=== PATIENT | male | born 1955 | race Caucasian/White ===

== ENCOUNTER 2018-04-02 15:34 | Outpatient (REF) | payer BC, SELFPAY ==
[2018-04-02 22:00] LABS: ALT 74 U/L (12-78); AST 79 U/L (15-37); Albumin 3.9 g/dL (3.4-5.0); Alkaline Phosphatase 236 U/L (46-116); Anion Gap 9.2 mmol/L (3-11); BUN 7 mg/dL (7-18); Bilirubin, Total 1.4 mg/dL (0.2-1.0); CO2 26.8 mmol/L (21.0-32.0); CREATININE 0.67 mg/dL (0.70-1.30); Calcium 8.6 mg/dL (8.5-10.1); Chloride 96 mmol/L (98-107); Cholesterol 160 mg/dL (50-200); Glucose 108 mg/dL (70-100); HDL Cholesterol 35 mg/dL (40-60); LDL CHOLESTEROL 102 mg/dL (<100); Potassium 3.9 mmol/L (3.5-5.1); Sodium 132 mmol/L (136-145); Total Protein 8.7 g/dL (6.4-8.2); Triglyceride 84 mg/dL (30-150)
== END 2018-04-02 15:54 ==
LOC: NCHCN 15:34
PROVIDERS: PCP Internal Medicine; Visit Provider Internal Medicine
DX: I10 Essential (primary) hypertension (principal)
CPT/HCPCS: 80053; 80061; 83721

== ENCOUNTER 2019-03-07 09:51 | Outpatient (REF) | payer BC, SELFPAY ==
[2019-03-07 20:51] LABS: INR 1.2 (0.9-1.1); Prothrombin Time 12.3 sec (9.3-11.0)
[2019-03-07 21:25] LABS: HCT 45.2 % (40.0-50.0); Mean Corp. HGB Concentration 33.2 g/dL (32.0-36.0); Mean Corpuscular Hemoglobin 32.8 pg (27.0-33.0); Mean Corpuscular Volume 98.7 fL (80-95); Mean Platelet Volume 10.6 fL (8.0-11.0); RBC 4.58 m/cumm (4.50-6.00); White Blood Cell Count 6.15 k/cumm (4.4-10.8)
[2019-03-07 21:38] LABS: ALT 35 U/L (16-63); AST 51 U/L (15-37); Albumin 3.7 g/dL (3.4-5.0); Alkaline Phosphatase 196 U/L (46-116); Anion Gap 9.1 mmol/L (3-11); BUN 9 mg/dL (7-18); Bilirubin, Total 1.2 mg/dL (0.2-1.0); CO2 26.9 mmol/L (21.0-32.0); CREATININE 0.85 mg/dL (0.70-1.30); Calcium 8.7 mg/dL (8.5-10.1); Chloride 97 mmol/L (98-107); Glucose 123 mg/dL (70-100); Potassium 4.5 mmol/L (3.5-5.1); Sodium 133 mmol/L (136-145); Total Protein 8.8 g/dL (6.4-8.2); Uric Acid 3.1 mg/dL (3.5-7.2)
[2019-03-07 21:47] LABS: Platelet Count 86 x1000/uL (130-400)
== END 2019-03-07 10:11 ==
LOC: NCHCN 09:51
PROVIDERS: PCP Nurse Practitioner Family; Visit Provider Nurse Practitioner Family
DX: I10 Essential (primary) hypertension (principal); M10.9 Gout, unspecified; R94.5 Abnormal results of liver function studies; G89.4 Chronic pain syndrome
CPT/HCPCS: 80053; 85027; 84550; 85610

== ENCOUNTER 2020-04-27 09:27 | Outpatient (REF) | payer BC, SELFPAY ==
[2020-04-27 21:12] LABS: INR 1.2 (0.9-1.1)
[2020-04-27 21:47] LABS: HCT 44.3 % (40.0-50.0); HGB 15.1 g/dL (13.5-17.5); MCH 33.4 pg (27.0-33.0); MCHC 34.1 % (32.0-36.0); RBC 4.52 10^6/uL (4.36-5.78); RDW 12.9 % (11.8-14.1); RDW-SD 46.1 fL
[2020-04-27 22:00] LABS: WBC 6.42 10^3/uL (4.4-10.8)
[2020-04-27 22:16] LABS: ALT 42 U/L (16-63); AST 65 U/L (15-37); Albumin 3.6 g/dL (3.4-5.0); Alkaline Phosphatase 222 U/L (46-116); Anion Gap 6.9 mmol/L (3-11); BUN 5 mg/dL (7-18); Bilirubin, Total 1.6 mg/dL (0.2-1.0); CO2 27.1 mmol/L (21.0-32.0); Calcium 9.2 mg/dL (8.5-10.1); Chloride 98 mmol/L (98-107); Glucose 127 mg/dL (74-106); Potassium 4.1 mmol/L (3.5-5.1); Sodium 132 mmol/L (136-145); Total Protein 9.1 g/dL (6.4-8.2)
== END 2020-04-27 09:47 ==
LOC: NCHCN 09:27
PROVIDERS: PCP Nurse Practitioner Family; Visit Provider Nurse Practitioner Family
DX: I10 Essential (primary) hypertension (principal); K70.30 Alcoholic cirrhosis of liver without ascites
CPT/HCPCS: 80053; 85027; 85610

== ENCOUNTER 2021-02-02 13:45 | Outpatient (REF) | payer BC, SELFPAY ==
[2021-02-02 14:20] LABS: HCT 37.5 % (40.0-50.0); HGB 13.2 g/dL (13.5-17.5); MCH 35.3 pg (27.0-33.0); MCHC 35.2 % (32.0-36.0); MCV 100.3 fL (80-95); RBC 3.74 10^6/uL (4.36-5.78); RDW-SD 47.9 fL; WBC 7.71 10^3/uL (4.4-10.8)
[2021-02-02 14:34] LABS: INR 1.3 (0.9-1.1); Prothrombin Time 13.4 sec (9.3-11.0)
[2021-02-02 14:43] LABS: ALT 29 U/L (16-63); AST 66 U/L (15-37); Albumin 2.8 g/dL (3.4-5.0); Alkaline Phosphatase 222 U/L (46-116); Anion Gap 6.8 mmol/L (3-11); BUN 5 mg/dL (7-18); Bilirubin, Total 1.3 mg/dL (0.2-1.0); CO2 27.2 mmol/L (21.0-32.0); CREATININE 0.8 mg/dL (0.70-1.30); Calcium 8.4 mg/dL (8.5-10.1); Chloride 99 mmol/L (98-107); Glucose 112 mg/dL (74-106); Potassium 4.1 mmol/L (3.5-5.1); Sodium 133 mmol/L (136-145); TSH 2.46 uIU/mL (0.36-3.74); Total Protein 8.6 g/dL (6.4-8.2); Uric Acid 2.9 mg/dL (3.5-7.2)
== END 2021-02-02 13:46 | disposition home or self-care (01) ==
LOC: NCHCN 13:45
PROVIDERS: PCP Nurse Practitioner Family; Visit Provider Nurse Practitioner Family
DX: I10 Essential (primary) hypertension (principal); M10.9 Gout, unspecified; K70.30 Alcoholic cirrhosis of liver without ascites; G89.4 Chronic pain syndrome; Z72.0 Tobacco use
CPT/HCPCS: 80053; 85027; 84443; 84550; 85610

== ENCOUNTER 2021-02-10 11:21 | Outpatient (REF) | payer BC, SELFPAY ==
[2021-02-10 15:01] LABS: HCT 36.4 % (40.0-50.0); HGB 12.6 g/dL (13.5-17.5); MCH 34.6 pg (27.0-33.0); MCHC 34.6 % (32.0-36.0); RBC 3.64 10^6/uL (4.36-5.78); RDW 13.1 % (11.8-14.1); RDW-SD 48.2 fL; WBC 5.76 10^3/uL (4.4-10.8)
== END 2021-02-10 11:22 | disposition home or self-care (01) ==
LOC: NCHCN 11:21
PROVIDERS: PCP Nurse Practitioner Family; Visit Provider Nurse Practitioner Family
DX: K70.30 Alcoholic cirrhosis of liver without ascites (principal)
CPT/HCPCS: 85027

== ENCOUNTER 2021-07-15 16:05 | Outpatient (REF) | payer BC, SELFPAY ==
[2021-07-15 14:40] LABS: HGB 12.6 g/dL (13.5-17.5); MCHC 34.1 % (32.0-36.0); MCV 102.8 fL (80-95); RDW 14.7 % (11.8-14.1); RDW-SD 56.5 fL; WBC 6.92 10^3/uL (4.4-10.8)
[2021-07-15 14:42] LABS: INR 1.5 (0.9-1.1); Prothrombin Time 14.9 sec (9.3-11.0)
[2021-07-15 14:54] LABS: ALT 27 U/L (16-63); AST 63 U/L (15-37); Albumin 2.5 g/dL (3.4-5.0); Alkaline Phosphatase 223 U/L (46-116); BUN 5 mg/dL (7-18); CREATININE 0.7 mg/dL (0.70-1.30); Calcium 8.3 mg/dL (8.5-10.1); Calculated LDL 75 mg/dL (<100); Chloride 101 mmol/L (98-107); Cholesterol 116 mg/dL (<200); Glucose 112 mg/dL (74-106); HDL Cholesterol 31 mg/dL (40-60); Potassium 3.4 mmol/L (3.5-5.1); Sodium 135 mmol/L (136-145); Total Protein 8.9 g/dL (6.4-8.2); Triglyceride 50 mg/dL (<150)
[2021-07-15 15:10] LABS: Hemoglobin A1C 4.2 % (<5.7)
== END 2021-07-15 16:06 | disposition home or self-care (01) ==
LOC: NCHCN 16:05
PROVIDERS: PCP Nurse Practitioner Family; Visit Provider Nurse Practitioner Family
DX: E78.5 Hyperlipidemia, unspecified (principal); R73.9 Hyperglycemia, unspecified; R94.5 Abnormal results of liver function studies; K70.30 Alcoholic cirrhosis of liver without ascites; I10 Essential (primary) hypertension
CPT/HCPCS: 80053; 80061; 85027; 83036; 85610

== ENCOUNTER 2021-07-19 15:18 | Outpatient (REF) | payer BC, SELFPAY ==
[2021-07-21 10:54] LABS: COVID-19 RT-PCR UVMMC Result Negative (Negative)
== END 2021-07-19 15:19 | disposition home or self-care (01) ==
LOC: NCHCN 15:18
PROVIDERS: PCP Nurse Practitioner Family; Visit Provider Nurse Practitioner Family
DX: Z20.822 Contact with and (suspected) exposure to COVID-19 (principal); R50.9 Fever, unspecified
CPT/HCPCS: U0003

== ENCOUNTER 2021-08-11 15:11 | Outpatient (REF) | payer BC, SELFPAY ==
[2021-08-11 21:58] LABS: Absolute Basophil Count 0.11 10^3/uL (0.0-0.2); Absolute Eosinophil Count 0.26 10^3/uL (0.0-0.7); Absolute Lymphocyte Count 2.25 10^3/uL (1.2-3.4); Absolute Neutrophil Count 5.58 10^3/uL (1.2-6.7); Basophils % 1.2; Eosinophils % 2.8; HCT 39.8 % (40.0-50.0); HGB 13.4 g/dL (13.5-17.5); Immature Grans % 0.3; Lymphocytes % 24.4; MCH 34.5 pg (27.0-33.0); MCHC 33.7 % (32.0-36.0); MCV 102.6 fL (80-95); Monocytes % 10.8; Neutrophils % 60.5; Nucleated RBC 0 %; RBC 3.88 10^6/uL (4.36-5.78); RDW 14.6 % (11.8-14.1); RDW-SD 55.3 fL; WBC 9.23 10^3/uL (4.4-10.8)
[2021-08-11 22:18] LABS: ALT 22 U/L (16-63); AST 65 U/L (15-37); Albumin 2.6 g/dL (3.4-5.0); Alkaline Phosphatase 223 U/L (46-116); BUN 10 mg/dL (7-18); Bilirubin, Total 3.7 mg/dL (0.2-1.0); Calcium 8.4 mg/dL (8.5-10.1); Chloride 101 mmol/L (98-107); Glucose 95 mg/dL (74-106); Potassium 3.4 mmol/L (3.5-5.1); Sodium 137 mmol/L (136-145); Total Protein 9.3 g/dL (6.4-8.2)
[2021-08-11 22:23] LABS: Diff Comment Agrees w/ Instrument; RBC Morphology Normal
[2021-08-12 11:12] LABS: Iron 105 ug/dL (65-175); Total Iron Binding Capacity 149 ug/dL (250-450); Transferrin Sat 70 % (20-55)
[2021-08-12 11:19] LABS: Vitamin B12 1158 pg/mL (193-986)
[2021-08-12 22:26] LABS: Ferritin 310 ng/mL (22-322); Folate 14.7 ng/mL (See Note)
== END 2021-08-11 15:12 | disposition home or self-care (01) ==
LOC: NCHCN 15:11
PROVIDERS: PCP Nurse Practitioner Family; Visit Provider Nurse Practitioner Family
DX: D64.9 Anemia, unspecified (principal); R94.5 Abnormal results of liver function studies; N50.812 Left testicular pain
CPT/HCPCS: 80053; 82607; 82728; 82746; 83540; 83550; 85025; 85610

== ENCOUNTER 2021-08-16 15:53 | Outpatient (REF) | payer BC, SELFPAY ==
[2021-08-16 17:45] LABS: INR 1.4 (0.9-1.1); Prothrombin Time 14.2 sec (9.3-11.0)
[2021-08-16 17:55] LABS: ALT 26 U/L (16-63); AST 57 U/L (15-37); Albumin 2.5 g/dL (3.4-5.0); Alkaline Phosphatase 183 U/L (46-116); Anion Gap 6.6 mmol/L (3-11); BUN 6 mg/dL (7-18); Bilirubin, Total 1.6 mg/dL (0.2-1.0); CO2 27.4 mmol/L (21.0-32.0); CREATININE 0.8 mg/dL (0.70-1.30); Calcium 8.6 mg/dL (8.5-10.1); Chloride 102 mmol/L (98-107); Glucose 100 mg/dL (74-106); Potassium 4.4 mmol/L (3.5-5.1); Sodium 136 mmol/L (136-145)
== END 2021-08-16 15:54 | disposition home or self-care (01) ==
LOC: NCHCN 15:53
PROVIDERS: PCP Nurse Practitioner Family; Visit Provider Nurse Practitioner Family
DX: K70.30 Alcoholic cirrhosis of liver without ascites (principal); R60.0 Localized edema
CPT/HCPCS: 80053; 85610

== ENCOUNTER 2021-08-24 16:23 | Outpatient (REF) | payer BC, SELFPAY ==
[2021-08-24 15:53] LABS: HCT 39.1 % (40.0-50.0); HGB 13.2 g/dL (13.5-17.5); MCH 34.1 pg (27.0-33.0); MCHC 33.8 % (32.0-36.0); RBC 3.87 10^6/uL (4.36-5.78); RDW 13.7 % (11.8-14.1); WBC 7.36 10^3/uL (4.4-10.8)
[2021-08-24 16:27] LABS: INR 1.3 (0.9-1.1); Prothrombin Time 13.3 sec (9.3-11.0)
[2021-08-24 16:50] LABS: ALT 30 U/L (16-63); AST 58 U/L (15-37); Albumin 2.8 g/dL (3.4-5.0); Alkaline Phosphatase 189 U/L (46-116); Anion Gap 10.1 mmol/L (3-11); BUN 10 mg/dL (7-18); Bilirubin, Total 1.2 mg/dL (0.2-1.0); CO2 23.9 mmol/L (21.0-32.0); Chloride 98 mmol/L (98-107); Glucose 156 mg/dL (74-106); Sodium 132 mmol/L (136-145); Total Protein 9.9 g/dL (6.4-8.2)
[2021-08-24 16:51] LABS: Platelet Count 100 10^3/uL (130-400)
== END 2021-08-24 16:24 | disposition home or self-care (01) ==
LOC: NCHCN 16:23
PROVIDERS: PCP Nurse Practitioner Family; Visit Provider Nurse Practitioner Family
DX: D64.9 Anemia, unspecified (principal); R94.5 Abnormal results of liver function studies; K70.30 Alcoholic cirrhosis of liver without ascites
CPT/HCPCS: 80053; 85027; 85610

== ENCOUNTER 2021-10-26 12:21 | Emergency (ER) | payer BC, SELFPAY ==
[2021-10-26] VITALS (40 sets, daily range): BP systolic 85–112; BP diastolic 42–61; PULSE 83–116; RESP 13–31; TEMP 36.7–37.2; O2SAT 92–100
--- OUTSIDE RECORDS SUMMARY | 2021-10-26 12:33 | XMS_ITS | CCD ---
:1955 Author Care Team Providers Name Role Phone Ligia JULIEN Attending Physician Unavailable Ligia JULIEN Rounding (Secondary) Physician Unavailab le Vital Signs Unknown or Not Available. Allergies Allergy Code Allergy Type Reaction Status No Known Allergies {Clinical 0 Drug allergy Active monitoring unavailable} Procedures Unknown or Not Available. History of Immunizations Unknown or Not Available. Problems Unknown or Not Available. Results Unknown or Not Available. Active Medications Unknown or Not Available. Medications Administered During Visit Unknown or Not Available. Encounters Encounter Diagnosis Diagnosis Code Start Date Localized edema R600 08/23/2021 Social History Smoking Status Code Start Date End Date Never smoker [id number] Patient Decision Aids Unknown or Not Available. Discharge Instructions You were admitted to [facility] on 08/23/2021 08:55 with a principal diagnosis of Localized edema You were discharged from [facility] on 08/23/2021 00:00 Should you have any questions prior to d ischarge, please contact a member of your healthcare team. If you have left the spital and have any questions, please contact your primary care physician. Chief Complaint and Reason For Visit Unknown or Not Available. Function Status Unknown or Not Available. Plan of Care Unknown or Not Available. Referral/Transition of Care Unknown or Not Available.
--- NOTE | 2021-10-26 12:45 | RT.EKG_ITS ---
APPROVED REPORT Exam: Resting ECG Reason for Exam: weakness Patient Location: E HR:95 bpm ECG Measurements Heart Rate 95 AXIS MO 167 P 33 QRSd 85 QRS -9 QT 382 T -15 QTc 482 Conclusion Sinus rhythm...normal P axis, V-rate 60- 99 Inferior infarct, age indeterminate...Q>35mS, T neg, II III aVF. Sinus. No STEMI. I have reviewed and interpreted ECG and agree with software generated interpretation.
[2021-10-26] MEDS: Ondansetron 4 MG/2 ML VIAL IVP (13:06)
[2021-10-26] MEDS: Pantoprazole 40 MG VIAL IVP (13:06)
[2021-10-26 13:10] LABS: Abs Immature Grans 0.16 10^3/uL (0.0-0.06); Absolute Basophil Count 0.13 10^3/uL (0.0-0.2); Absolute Lymphocyte Count 2.06 10^3/uL (1.2-3.4); Basophils % 0.9; Eosinophils % 0.3; Immature Grans % 1.1; Lymphocytes % 14.3; MCH 35.4 pg (27.0-33.0); MCHC 33.7 % (32.0-36.0); MCV 105 fL (80-95); MPV 10.5 fL (8.0-11.0); Monocytes % 6.9; Neutrophils % 76.5; Platelet Count 177 10^3/uL (130-400); RBC 1.75 10^6/uL (4.36-5.78); RDW 14.7 % (11.8-14.1); WBC 14.39 10^3/uL (4.4-10.8)
[2021-10-26 13:13] LABS: Absolute Eosinophil Count 0.04 10^3/uL (0.0-0.7)
[2021-10-26] MEDS: Normal Saline 500 ML IV (13:15)
[2021-10-26 13:16] LABS: Absolute Neutrophil Count 11.01 10^3/uL (1.2-6.7)
[2021-10-26 13:17] LABS: Absolute Monocyte Count 0.99 10^3/uL (0.1-0.8)
[2021-10-26 13:19] LABS: INR 1.5 (0.9-1.1); Prothrombin Time 14.8 sec (9.3-11.0)
[2021-10-26 13:28] LABS: HGB 6.2 g/dL (13.5-17.5)
[2021-10-26 13:29] LABS: Diff Comment Diff Reviewed; Hypochromasia 3+; Macrocytosis 2+; Polychromasia Present
[2021-10-26 13:31] LABS: ALT 17 U/L (16-63); AST 43 U/L (15-37); Alkaline Phosphatase 121 U/L (46-116); Anion Gap 9.7 mmol/L (3-11); BUN 20 mg/dL (7-18); CO2 24.3 mmol/L (21.0-32.0); CREATININE 1.3 mg/dL (0.70-1.30); Chloride 106 mmol/L (98-107); Estimated GFR 55.58 (mL/min/1.73m2); Glucose 120 mg/dL (74-106); Lipase 155 U/L (73-393); Potassium 3.8 mmol/L (3.5-5.1); Sodium 140 mmol/L (136-145); Total Protein 6.3 g/dL (6.4-8.2); Troponin I < 50 ng/L (<or=60)
[2021-10-26 13:32] LABS: ETHANOL BLOOD < 3.0 mg/dL (<10)
--- NOTE | 2021-10-26 14:00 | DI.RAD_ITS ---
Exam(s) XR PORTABLE CHEST AP EXAM: XR PORTABLE CHEST AP CLINICAL HISTORY: GI bleed. TECHNIQUE: 2D digital imaging was performed. COMPARISON: No exams were available for comparison FINDINGS: Single AP portable view. Heart size is upper normal. The mediastinum is not widened. Lungs are clear. No infiltrates nor obvious pleural effusions. IMPRESSION: No acute pulmonary findings on this single AP portable view of the chest. DATA REPOSITORY: RADIATION DOSE DELIVERED: All CT scans at this facility use at least one of these dose optimization techniques: automated exposure control; mA and/or kV adjustment per patient size (includes targeted e xams where dose is matched to clinical indication); or iterative reconstruction.
[2021-10-26] MEDS: cefTRIAXone 1 GM/50 ML BAG IVPB (14:22)
[2021-10-26] MEDS: OCTREOTIDE 250 MCG in Normal Saline 245 ML 50 MCG IV (14:26)
--- NOTE | 2021-10-26 15:12 | ED.GENADUL_ITS ---
Discharge Plan Disposition Patient Disposition: [facility] Condition: Critical Discharge Details Clinical Impression: Acute GI bleeding, Cirrhosis Primary Care Provider: Mandy Briggs ED Provider: Margarette Bell Home Meds and New Rx's Prescriptions: Continued oxycodone-acetaminophen 7.5-325 mg tablet 1 tab TID 0RF amlodipine 10 mg tablet 10 mg PO DAILY 0RF Label Comments: TAKE 1 TABLET BY MOUTH EVERY DAY allopurinol 300 mg tablet 300 mg PO DAILY 0RF Label Comments: TAKE 1 TABLET BY MOUTH DAILY Discharge Data Discharge Date/Time-TO BE ENTERED AT DEPARTURE: 10/26/21 16:00 Medical Decision Making Guaiac positive stool, melena, no active vomiting in the emergency department Initially hypotensive, blood pressure of 85/45, pulse of 95 on nadolol Received 1 unit of blood and 1 additional unit is infusing at this time Consultation with her surgical physician recommended octreotide infusion in addition to transthoracic stomach acid, received 1 g IV Initially 500 cc bolus of NS with initiated, this was stopped when 1 unit of uncrossed blood was obtained Patient is receiving a second unit of type and cross blood His blood pressure at time of reassessment and 106/51, 1515 Patient was accepted by [facility], Dr. Harris is the accepting physician, I spoke with Dr. Ortiz and cough Updated patient and recommended 1 g of ceftriaxone which was administered, graciela [place] exhibits no signs or symptoms of infectious etiology of symptoms, portable x-ray does not show acute abnormality per radiology interpretation my review Hemoglobin of 6.2, hematocrit of 18, calcium of 8, patient feeling symptomatically improved Resting comfortably in room at time of reassessment, no signs or volume overload Patient has been accepted to [facility], is intact, he is full CODE STATUS, he is agreeable to transport at this time and stable for transport at time of reassessment Medical Records Medical records reviewed: Yes I reviewed the patient's medical records. Lab Data Lab results reviewed: Yes I reviewed the patient's lab results. HPI General Date/Time Provider Initiated Documentation: 10/26/21 12:51 . HPI Narrative: 66-year-old male presents with history of ascites and cirrhosis with bleeding since Monday intermittently. He had several episodes of bloody stools on Monday followed by no active GI bleeding on Monday and then Monday 1 episode of bloody vomiting followed by several episodes of bloody stools. He denies any chest pain, abdominal pain, shortness of breath.. He feels lightheaded. He denies any falls or injuries. He has not had a drink in approximately 3 months. He has not anticoagulated. He did not take any of his medications this morning. He denies prior history of similar symptoms or known varices in the past. He describes the blood in his vomitus with bright red and dark blood in his stool. He denies any current abdominal pain. Related Data Home Medications Medication Instructions Recorded Confirmed allopurinol 300 mg tablet 300 mg PO DAILY 10/26/21 10/26/21 amlodipine 10 mg tablet 10 mg PO DAILY 10/26/21 10/26/21 oxycodone-acetaminophen 7.5 mg-325 1 tab TID 10/26/21 10/26/21 mg tablet Allergies Allergy/AdvReac Type Severity Reaction Status Date / Time No Known Allergies Allergy Unverified 10/26/21 13:58 General Stated Complaint: GI Bleed ABI: 2 Review of Systems All systems reviewed & are unremarkable except as noted in HPI and below PFSH All Active Problems (Updated 10/26/21 @ 15:47 by GRACIELA Daley) Acute GI bleeding (Acute) Cirrhosis (Acute) Medical History (Updated 10/26/21 @ 15:47 by GRACIELA Daley) Cirrhosis Gout Hyperlipemia Hypertension Pain syndrome, chronic Social History Smoking/Tobacco Use Status: Never Smoking risk assessment performed?: Yes Alcohol Intake: former Drug use: Never Do you feel safe at home: Yes Do you feel safe in your relationship?: Yes Exam Const General: cooperative and ill appearing [facility] Other: Dried blood noted around mouth Eyes Pupils: PERRL Other: No icterus Resp Effort & Inspection: normal respiratory effort Auscultation: clear to auscultation bilaterally Cardio Rate: regular rate Rhythm: regular rhythm GI Inspection: normal to inspection Other: non-tender abdominal exam Skin Other: pallor Neuro General: patient alert and patient oriented x3 Extrem General: normal to inspection Left upper extremity: normal to inspection Course Vital Signs Vital signs: Vital Signs Temperature 36.7 C 10/26/21 12:52 Pulse 102 H 10/26/21 12:52 Respiratory Rate 18 10/26/21 12:52 Blood Pressure 93/45 L 10/26/21 12:52 Pulse Oximetry 97 10/26/21 12:52 Temperature 36.9 C 10/26/21 13:20 Temperature Source Tympanic 10/26/21 12:52 Pulse 93 H 10/26/21 13:20 Respiratory Rate 20 10/26/21 13:20 Respiratory Effort Non-Labored 10/26/21 13:30 Blood Pressure 103/48 L 10/26/21 13:20 Pulse Oximetry 98 10/26/21 13:20 Oxygen Delivery Method Room Air 10/26/21 13:20 Oxygen Flow Rate 0 10/26/21 13:20 Lab/Test Results Lab/Test Results: Laboratory Tests Range/Units 10/26/21 10/26/21 10/26/21 12:56 12:56 12:56 WBC (4.4-10.8) 10^3/uL 14.39 H RBC (4.36-5.78) 10^6/uL 1.75 L Hgb (13.5-17.5) g/dL 6.2 L* Hct (40.0-50.0) % 18.4 L* MCV (80-95) fL 105 H MCH (27.0-33.0) pg 35.4 H MCHC (32.0-36.0) % 33.7 RDW (11.8-14.1) % 14.7 H Plt Count (130-400) 10^3/uL 177 MPV (8.0-11.0) fL 10.5 Immature Gran % 1.1 Neutrophils % 76.5 Lymphocytes % 14.3 Monocytes % 6.9 Eosinophils % 0.3 Basophils % 0.9 Nucleated RBC % (0.0-0.3) % 0.0 Absolute Neutrophils (1.2-6.7) 10^3/uL 11.01 H Absolute Lymphocytes (1.2-3.4) 10^3/uL 2.06 Absolute Monocytes (0.1-0.8) 10^3/uL 0.99 H Absolute Eosinophils (0.0-0.7) 10^3/uL 0.04 Absolute Basophils (0.0-0.2) 10^3/uL 0.13 RBC Morphology See Below Polychromasia Present Hypochromasia 3+ Macrocytosis 2+ PT (9.3-11.0) sec 14.8 H INR (0.9-1.1) 1.5 H Sodium (136-145) mmol/L 140 Potassium (3.5-5.1) mmol/L 3.8 Chloride (98-107) mmol/L 106 Carbon Dioxide (21.0-32.0) mmol/L 24.3 Anion Gap (3-11) mmol/L 9.7 BUN (7-18) mg/dL 20 H Creatinine (0.70-1.30) mg/dL 1.3 Estimated GFR/1.73 m2 (mL/min/1.73m2) 55.58 Glucose (74-106) mg/dL 120 H Calcium (8.5-10.1) mg/dL 8.0 L Total Bilirubin (0.2-1.0) mg/dL 1.0 AST (15-37) U/L 43 H ALT (16-63) U/L 17 Alkaline Phosphatase (46-116) U/L 121 H Troponin I (<or=60) ng/L < 50 Total Protein (6.4-8.2) g/dL 6.3 L Albumin (3.4-5.0) g/dL 2.0 L Lipase (73-393) U/L 155 Ethyl Alcohol (<10) mg/dL < 3.0 Patient ABO/Rh Antibody Screen Crossmatch Range/Units 10/26/21 12:56 WBC (4.4-10.8) 10^3/uL RBC (4.36-5.78) 10^6/uL Hgb (13.5-17.5) g/dL Hct (40.0-50.0) % MCV (80-95) fL MCH (27.0-33.0) pg MCHC (32.0-36.0) % RDW (11.8-14.1) % Plt Count (130-400) 10^3/uL MPV (8.0-11.0) fL Immature Gran % Neutrophils % Lymphocytes % Monocytes % Eosinophils % Basophils % Nucleated RBC % (0.0-0.3) % Absolute Neutrophils (1.2-6.7) 10^3/uL Absolute Lymphocytes (1.2-3.4) 10^3/uL Absolute Monocytes (0.1-0.8) 10^3/uL Absolute Eosinophils (0.0-0.7) 10^3/uL Absolute Basophils (0.0-0.2) 10^3/uL RBC Morphology Polychromasia Hypochromasia Macrocytosis PT (9.3-11.0) sec INR (0.9-1.1) Sodium (136-145) mmol/L Potassium (3.5-5.1) mmol/L Chloride (98-107) mmol/L Carbon Dioxide (21.0-32.0) mmol/L Anion Gap (3-11) mmol/L BUN (7-18) mg/dL Creatinine (0.70-1.30) mg/dL Estimated GFR/1.73 m2 (mL/min/1.73m2) Glucose (74-106) mg/dL Calcium (8.5-10.1) mg/dL Total Bilirubin (0.2-1.0) mg/dL AST (15-37) U/L ALT (16-63) U/L Alkaline Phosphatase (46-116) U/L Troponin I (<or=60) ng/L Total Protein (6.4-8.2) g/dL Albumin (3.4-5.0) g/dL Lipase (73-393) U/L Ethyl Alcohol (<10) mg/dL Patient ABO/Rh A Positive Antibody Screen NEGATIVE Crossmatch See Detail Critical Care Time Critical Care Time Critical Care Time: Yes Total Critical Care Time: 60 Attestation: Blood administration, telemetry monitoring, diagnostic EKG, diagnostic labs, consultation with [facility], transfer to intensive level care, telemetry monitoring
[2021-10-31 09:39] LABS: HCT 18.4 % (40.0-50.0)
== END 2021-10-26 16:00 | disposition short-term general hospital (02) ==
PROVIDERS: Emergency Provider Physician Assistant; PCP Nurse Practitioner Family
DX: K92.2 Gastrointestinal hemorrhage, unspecified (principal); K74.60 Unspecified cirrhosis of liver; R53.1 Weakness; I95.9 Hypotension, unspecified
CPT/HCPCS: 36430; 80053; 83690; 86850; 86900; 86901; 86920; 93005; 96361; 96365; 96366; 96368; 96375; 99291; 71045; 80320; 84484; 85025; 85610; 93010; J0696; J2354; J2405; P9016

== ENCOUNTER 2021-12-16 10:46 | Outpatient (REF) | payer BC, SELFPAY ==
[2021-12-16 15:38] LABS: HCT 32.6 % (40.0-50.0); HGB 10.9 g/dL (13.5-17.5); MCH 33.5 pg (27.0-33.0); MCHC 33.4 % (32.0-36.0); MCV 100 fL (80-95); MPV 11.8 fL (8.0-11.0); Platelet Count 96 10^3/uL (130-400); RBC 3.25 10^6/uL (4.36-5.78); WBC 5.28 10^3/uL (4.4-10.8)
[2021-12-16 16:04] LABS: ALT 29 U/L (16-63); AST 57 U/L (15-37); Albumin 2.4 g/dL (3.4-5.0); Alkaline Phosphatase 144 U/L (46-116); Anion Gap 7.2 mmol/L (3-11); BUN 15 mg/dL (7-18); Bilirubin, Total 1.6 mg/dL (0.2-1.0); CO2 24.8 mmol/L (21.0-32.0); CREATININE 1.1 mg/dL (0.70-1.30); Calcium 8.9 mg/dL (8.5-10.1); Chloride 99 mmol/L (98-107); Glucose 126 mg/dL (74-106); Sodium 131 mmol/L (136-145); Total Protein 7.7 g/dL (6.4-8.2)
== END 2021-12-16 10:47 | disposition home or self-care (01) ==
LOC: NCHCN 10:46
PROVIDERS: PCP Nurse Practitioner Family; Visit Provider Nurse Practitioner Family
DX: L08.89 Other specified local infections of the skin and subcutaneous tissue (principal); N17.9 Acute kidney failure, unspecified; G31.2 Degeneration of nervous system due to alcohol; N28.89 Other specified disorders of kidney and ureter
CPT/HCPCS: 80053; 85027; 87070; 87205

== ENCOUNTER 2022-01-03 16:37 | Outpatient (REF) | payer BC, SELFPAY ==
[2022-01-03 20:39] LABS: HCT 34.8 % (40.0-50.0); HGB 11.8 g/dL (13.5-17.5); MCH 33.1 pg (27.0-33.0); MCHC 33.9 % (32.0-36.0); MCV 98 fL (80-95); RBC 3.57 10^6/uL (4.36-5.78); WBC 4.86 10^3/uL (4.4-10.8)
[2022-01-03 20:55] LABS: ALT 25 U/L (16-63); AST 64 U/L (15-37); Albumin 2.6 g/dL (3.4-5.0); Alkaline Phosphatase 155 U/L (46-116); Anion Gap 12.6 mmol/L (3-11); BUN 12 mg/dL (7-18); Bilirubin, Total 1.8 mg/dL (0.2-1.0); CO2 23.4 mmol/L (21.0-32.0); Chloride 100 mmol/L (98-107); Glucose 108 mg/dL (74-106); Potassium 4.1 mmol/L (3.5-5.1); Sodium 136 mmol/L (136-145); Total Protein 8.3 g/dL (6.4-8.2)
[2022-01-04 10:32] LABS: Magnesium 1.6 mg/dL (1.8-2.4)
== END 2022-01-03 16:38 | disposition home or self-care (01) ==
LOC: NCHCN 16:37
PROVIDERS: PCP Nurse Practitioner Family; Visit Provider Nurse Practitioner Family
DX: K70.30 Alcoholic cirrhosis of liver without ascites (principal); R94.5 Abnormal results of liver function studies
CPT/HCPCS: 80053; 85027; 83735

== ENCOUNTER 2024-08-06 13:19 | Outpatient (REF) | payer BC, SELFPAY ==
[2024-08-06 14:20] LABS: HCT 36.8 % (40.0-50.0); HGB 12.4 g/dL (13.5-17.5); MCH 33.7 pg (27.0-33.0); MCHC 33.7 % (32.0-36.0); MCV 100 fL (80-95); MPV 11.2 fL (8.0-11.0); Platelet Count 120 10^3/uL (130-400); RBC 3.68 10^6/uL (4.36-5.78); WBC 6.25 10^3/uL (4.4-10.8)
[2024-08-06 14:33] LABS: INR 1.3 (0.9-1.1); Prothrombin Time 13.1 sec (9.1-11.1)
[2024-08-06 14:44] LABS: ALT 20 U/L (16-63); AST 49 U/L (15-37); Albumin 2.2 g/dL (3.4-5.0); Alkaline Phosphatase 149 U/L (46-116); BUN 10 mg/dL (7-18); Bilirubin, Total 1.61 mg/dL (0.2-1.0); Calcium 8.9 mg/dL (8.5-10.1); Calculated LDL 67 mg/dL (<100); Chloride 108 mmol/L (98-107); Cholesterol 137 mg/dL (<200); Estimated GFR 82.49 (mL/min/1.73m2); Glucose 121 mg/dL (74-106); HDL Cholesterol 56 mg/dL (40-60); Potassium 4.6 mmol/L (3.5-5.1); Sodium 141 mmol/L (136-145); Total Protein 6.9 g/dL (6.4-8.2); Triglyceride 71 mg/dL (<150)
[2024-08-06 14:53] LABS: Uric Acid 5.4 mg/dL (3.5-7.2)
== END 2024-08-06 13:20 | disposition home or self-care (01) ==
LOC: NCHCN 13:19
PROVIDERS: PCP Nurse Practitioner Family; Visit Provider Nurse Practitioner Family
DX: K70.30 Alcoholic cirrhosis of liver without ascites (principal); M10.9 Gout, unspecified
CPT/HCPCS: 80053; 80061; 85027; 84550; 85610

== ENCOUNTER 2024-11-21 10:52 | Outpatient (REF) | payer BC, SELFPAY ==
[2024-11-21 17:45] LABS: HCT 41.2 % (40.0-50.0); HGB 14.1 g/dL (13.5-17.5); MCH 33.8 pg (27.0-33.0); MCHC 34.2 % (32.0-36.0); MCV 99 fL (80-95); MPV 11.4 fL (8.0-11.0); Platelet Count 112 10^3/uL (130-400); RBC 4.17 10^6/uL (4.36-5.78); RDW 13.1 % (11.8-14.1); RDW-SD 47.4 fL; WBC 4.77 10^3/uL (4.4-10.8)
[2024-11-21 18:25] LABS: ALT 33 U/L (16-63); AST 56 U/L (15-37); Alkaline Phosphatase 138 U/L (46-116); Anion Gap 5.2 mmol/L (3-11); BUN 12 mg/dL (7-18); Bilirubin, Total 1.4 mg/dL (0.2-1.0); CO2 30.8 mmol/L (21.0-32.0); CREATININE 0.8 mg/dL (0.70-1.30); Calcium 9.3 mg/dL (8.5-10.1); Chloride 103 mmol/L (98-107); Folate > 20.0 ng/mL (8.6-20.0); Glucose 113 mg/dL (74-106); Potassium 4.7 mmol/L (3.5-5.1); Sodium 139 mmol/L (136-145); Total Protein 7.2 g/dL (6.4-8.2); Vitamin B12 1456 pg/mL (193-986)
[2024-11-22 18:51] LABS: PSA, Diagnostic 1.4 ng/mL (<=4.5)
[2024-11-25 12:01] LABS: Lyme Ab w Rflx to Lyme Confirm Negative (Negative)
[2024-11-25 20:37] LABS: Anaplasma phagocytophilum Negative (Negative); B. miyamotoi PCR Negative (Negative); Babesia divergens/MO-1 Negative (Negative); Babesia duncani Negative (Negative); Babesia microti Negative (Negative); Ehrlichia chaffeensis Negative (Negative); Ehrlichia ewingii/canis Negative (Negative); Ehrlichia muris eauclairensis Negative (Negative)
== END 2024-11-21 10:53 | disposition home or self-care (01) ==
LOC: NCHCN 10:52
PROVIDERS: PCP Nurse Practitioner Family; Visit Provider Nurse Practitioner Family
DX: K70.30 Alcoholic cirrhosis of liver without ascites (principal); D75.89 Other specified diseases of blood and blood-forming organs; R39.0 Extravasation of urine; M25.561 Pain in right knee; M25.562 Pain in left knee; R39.9 Unspecified symptoms and signs involving the genitourinary system
CPT/HCPCS: 80053; 85027; 87798; 82607; 82746; 84153; 86618

== ENCOUNTER 2025-05-01 11:13 | Outpatient (REF) | payer BC, SELFPAY ==
[2025-05-01 14:47] LABS: Microalb ug/mg Crea 3.5 ug/mg Cr
== END 2025-05-01 11:14 | disposition home or self-care (01) ==
LOC: NCHCN 11:13
PROVIDERS: PCP Nurse Practitioner Family; Visit Provider Nurse Practitioner Family
DX: I10 Essential (primary) hypertension (principal)
CPT/HCPCS: 82043; 82570